=== PATIENT | male | born 1965 | race Caucasian/White ===

== ENCOUNTER 2016-07-07 18:42 | Emergency (ER) | payer MEDICAID ==
[~2016-07-07] VITALS: Ht 172.7 cm; Wt 68.1 kg
[~2016-07-07 18:42] MED LIST: ALPR1TAB2 PO; AMPH20TA2 PO
[2016-07-07 18:47] VITALS: BP 146/82
[2016-07-07] MEDS ORDERED: LIDOCAINE 1%, 10ML INFIL ONE (19:00)
[2016-07-07] MEDS ORDERED: DIPH,PERTUSS(ACELL),TET VAC/PF 0.5 ML IM-VACC ONE ×2 (19:00→19:19)
[2016-07-07] MEDS ORDERED: ACETAMINOPHEN 500 MG TABLET ONE (19:18)
[2016-07-07] MEDS ORDERED: LIDOCAINE 1%, 20ML ONE (19:26)
[2016-07-07] MEDS ORDERED: ACETAMINOPHEN 500 MG TABLET PO ONE (19:30)
[2016-07-07] MEDS ORDERED: HYDROmorphone 1 MG/ML, 1ML IM ONE (20:30)
[2016-07-07] MEDS ORDERED: HYDROmorphone 1 MG/ML, 1ML ONE (20:37)
== END 2016-07-07 20:51 | disposition home or self-care (01) ==
LOC: ED 20:33
DX: S09.90XA Unspecified injury of head, initial encounter (principal); X58.XXXA Exposure to other specified factors, initial encounter; Y93.89 Activity, other specified; Y92.89 Other specified places as the place of occurrence of the external cause; Y99.8 Other external cause status
CPT/HCPCS: 12002; 90471; 90715; 99283; J3490

== ENCOUNTER 2017-05-30 04:43 | Emergency (ER) | payer MEDICAID ==
[~2017-05-30] VITALS: Ht 172.7 cm; Wt 80.8 kg
[2017-05-30 04:45] VITALS: BP 156/92
[2017-05-30] MEDS ORDERED: IBUPROFEN 200 MG TABLET PO ONE (05:30)
[2017-05-30] MEDS ORDERED: IBUPROFEN 200 MG TABLET ONE (05:33)
[2017-05-30] MEDS ORDERED: ACETAMINOPHEN 325 MG TABLET ONE (05:36)
[2017-05-30] MEDS ORDERED: ACETAMINOPHEN 325 MG TABLET PO ONE (06:00)
== END 2017-05-30 07:24 | disposition home or self-care (01) ==
LOC: ED 07:19
DX: M79.672 Pain in left foot (principal); Z59.0 Homelessness
CPT/HCPCS: 99284

== ENCOUNTER 2018-01-27 16:01 | Emergency (ER) | payer MEDICAID ==
[~2018-01-27] VITALS: Ht 172.7 cm; Wt 82.0 kg
[2018-01-27] MEDS ORDERED: LIDOCAINE-MPF 1%, 5ML INFIL ONE (16:30)
[2018-01-27] MEDS ORDERED: DIPH,PERTUSS(ACELL),TET VAC/PF 0.5 ML IM-VACC ONE ×2 (17:24→17:30)
[2018-01-27] MEDS ORDERED: ACETAMINOPHEN 500 MG TABLET ONE (17:24)
[2018-01-27] MEDS ORDERED: ACETAMINOPHEN 500 MG TABLET PO ONE (17:30)
[2018-01-27 17:51] VITALS: BP 138/74
== END 2018-01-27 17:54 | disposition home or self-care (01) ==
LOC: ED 17:20
DX: S01.01XA Laceration without foreign body of scalp, initial encounter (principal); F32.9 Major depressive disorder, single episode, unspecified; Z21 Asymptomatic human immunodeficiency virus [HIV] infection status; R51 Headache; F17.200 Nicotine dependence, unspecified, uncomplicated; W19.XXXA Unspecified fall, initial encounter; Y93.89 Activity, other specified; Y92.410 Unspecified street and highway as the place of occurrence of the external cause; Y99.8 Other external cause status
CPT/HCPCS: 12001; 70450; 90471; 90715

== ENCOUNTER 2018-02-06 12:29 | Emergency (ER) | payer MEDICAID ==
[~2018-02-06] VITALS: Ht 172.7 cm; Wt 79.5 kg
[2018-02-06 12:32] VITALS: BP 150/85
[2018-02-06] MEDS ORDERED: ACETAMINOPHEN 325 MG TABLET ONE (12:57)
[2018-02-06] MEDS ORDERED: ACETAMINOPHEN 325 MG TABLET PO ONE (13:00)
== END 2018-02-06 13:07 | disposition home or self-care (01) ==
LOC: ED 12:37
DX: S01.01XD Laceration without foreign body of scalp, subsequent encounter (principal); F17.200 Nicotine dependence, unspecified, uncomplicated
CPT/HCPCS: 99282

== ENCOUNTER 2018-09-12 11:10 | Emergency (ER) | payer MEDICAID ==
[~2018-09-12] VITALS: Ht 172.7 cm; Wt 74.0 kg
--- NOTE | 2018-09-12 11:23 | NUR ---
BIB BY [facility] FOR RIGHT FOOT PAIN AFTER DROPPING TELEVISION ON FOOT. AMBULATORY W/ NO NOTICEABLE DEFICIT NO SWELLING NOTED CMS INTACT REPORTS PAIN AT 7/10 HR 116 TONGUE DRY, REPORTS HE WAS TOO BUSY TO DRINK ANYTHING THIS AM. REPORTS HE TOOK SCHEDULED 30MG OF ADDERRAL THIS AM
--- NOTE | 2018-09-12 11:28 | NUR ---
XRAY AT BEDSIDE
--- NOTE | 2018-09-12 11:40 | NUR ---
MAIA FROM [facility]ILL[facility]. PT CARE TO BE ASSUMED BY THIS BREAK RN.
--- NOTE | 2018-09-12 11:48 | NUR ---
PT SITTING ON SIDE OF GURNEY; ICE PACK ON FOOT; ADVISED PT TO ELEVATE FOOT; SUGGESTION ACCEPTED. PT A&OX4, RESP EVEN & UNLABORED, SPEECH QUICK AND CLEAR, PT IN GOOD SPIRITS. INFORMED PT THAT [facility] IS WAITING FOR RADIOLOGY REPORT.
[2018-09-12 12:47] VITALS: BP 138/62
== END 2018-09-12 12:50 | disposition home or self-care (01) ==
LOC: ED 12:04
DX: S97.121A Crushing injury of right lesser toe(s), initial encounter (principal); F17.200 Nicotine dependence, unspecified, uncomplicated; W23.1XXA Caught, crushed, jammed, or pinched between stationary objects, initial encounter; Y93.89 Activity, other specified; Y92.009 Unspecified place in unspecified non-institutional (private) residence as the place of occurrence of the external cause; Y99.8 Other external cause status
CPT/HCPCS: 99283

== ENCOUNTER 2018-09-17 23:04 | Emergency (ER) | payer MEDICAID ==
[~2018-09-17] VITALS: Ht 172.7 cm; Wt 73.5 kg
[2018-09-18 01:09] VITALS: BP 151/87
== END 2018-09-18 01:22 | disposition home or self-care (01) ==
LOC: ED 23:33
DX: S92.511A Displaced fracture of proximal phalanx of right lesser toe(s), initial encounter for closed fracture (principal); F32.9 Major depressive disorder, single episode, unspecified; F98.8 Other specified behavioral and emotional disorders with onset usually occurring in childhood and adolescence; F17.200 Nicotine dependence, unspecified, uncomplicated; W20.8XXA Other cause of strike by thrown, projected or falling object, initial encounter; Y93.89 Activity, other specified; Y92.009 Unspecified place in unspecified non-institutional (private) residence as the place of occurrence of the external cause; Y99.8 Other external cause status
CPT/HCPCS: 99283

== ENCOUNTER 2019-04-15 10:35 | Emergency (ER) | payer MEDICAID ==
[~2019-04-15] VITALS: Ht 172.7 cm; Wt 76.2 kg
[2019-04-15 10:53] VITALS: BP 150/89
--- NOTE | 2019-04-15 11:05 | NUR ---
arrived to with PD escort, gait steady, A&ox3, speech clear but rapid, strong smell of smoke coming from pt, denies HI/SI, denies visual or auditory hallucinations, skin intact
--- NOTE | 2019-04-15 11:11 | NUR ---
pt refusing blood work, provider @ bedside with pt
--- NOTE | 2019-04-15 13:27 | NUR ---
Patient given discharge instructions and they have confirmed that they understand the instructions. Patient ambulatory with steady gait.
== END 2019-04-15 13:28 | disposition home or self-care (01) ==
LOC: ED 12:23
DX: R46.81 Obsessive-compulsive behavior (principal)
CPT/HCPCS: 99283

== ENCOUNTER 2019-09-10 04:09 | Emergency (ER) | payer MEDICAID ==
[~2019-09-10] VITALS: Ht 172.7 cm; Wt 68.0 kg
[2019-09-10 04:16] VITALS: BP 161/100
== END 2019-09-10 05:59 | disposition home or self-care (01) ==
LOC: ED 04:42
DX: G89.11 Acute pain due to trauma (principal); M79.641 Pain in right hand; M79.642 Pain in left hand; M79.5 Residual foreign body in soft tissue
CPT/HCPCS: 99282

== ENCOUNTER 2020-07-19 20:36 | Emergency (ER) | payer MEDICAID ==
[~2020-07-19] VITALS: Ht 172.7 cm; Wt 86.1 kg
--- NOTE | 2020-07-19 23:36 | NUR ---
IRON WORKER APPRENTICE: PT. TO ROOM FROM LOBBY AT THIS TIME.
--- NOTE | 2020-07-19 23:38 | NUR ---
ASSESSMENT MADE. CHART UP FOR MD TO SEE.
[2020-07-20 00:26] LABS: BASOPHILS % (AUTO) 1 % (0-1); EOSINOPHILS % (AUTO) 3 % (1-7); LYMPHOCYTES % (AUTO) 25 % (22-44); MEAN CORPUSCULAR HEMOGLOBIN 32.2 pg (27.5-34.5); MEAN CORPUSCULAR HGB CONC 33.9 g/dL (33.2-36.2); MEAN PLATELET VOLUME 8.5 fL (7.4-10.4); MONOCYTES % (AUTO) 10 % (2-9); NEUTROPHILS % (AUTO) 62 % (42-75); PLATELET COUNT 241 x10^3/uL (130-400); RED BLOOD COUNT 4.02 x10^6/uL (4.38-5.82); RED CELL DISTRIBUTION WIDTH 15.6 % (9.4-14.8)
[2020-07-20 00:28] LABS: MD NO
[2020-07-20] MEDS ORDERED: HYDROcodone/APAP 5/325 TABLET PO ONE (00:30)
--- NOTE | 2020-07-20 00:35 | NUR ---
IV PLACED BY CARDING MACHINE FEEDER STUDENT. BLOOD DRAWN.
[2020-07-20 00:38] LABS: ALBUMIN 4.1 g/dL (3.4-5.0); ANION GAP 6 mmol/L (5-15); CALCIUM 9.1 mg/dL (8.5-10.1); CHLORIDE 107 mmol/L (98-107)
[2020-07-20 00:41] LABS: ALANINE AMINOTRANSFERASE 35 U/L (12-78); ALKALINE PHOSPHATASE 70 U/L (45-117); BILIRUBIN,TOTAL 0.3 mg/dL (0.2-1.0); CREATININE 1.01 mg/dL (0.7-1.3); TOTAL PROTEIN 7.7 g/dL (6.4-8.2)
[2020-07-20 00:43] LABS: MICROSCOPIC NOT IND
[2020-07-20] MEDS ORDERED: HYDROcodone/APAP 5/325 TABLET ONE (00:50)
--- NOTE | 2020-07-20 00:58 | NUR ---
ROHIT RN: PT MEDICATED FOR 8/10 ABD PAIN. VS STABLE. NO ACUTE DISTRESS NOTED. CALL LIGHT IN PLACE WILL CONTINUE TO MONITOR.
[2020-07-20] MEDS ORDERED: OMNIPAQUE 350 MG/ML, 100ML BOTTLE ONE (01:50)
[2020-07-20 03:38] VITALS: BP 136/94
--- NOTE | 2020-07-20 03:38 | NUR ---
RE-EVALUATION DONE. PATIENT DISCHARGED WITH INSTRUCTION. VERBALIZED UNDERSTANDING.
== END 2020-07-20 03:40 | disposition home or self-care (01) ==
LOC: ED 07-20 01:40
DX: K76.89 Other specified diseases of liver (principal); K44.9 Diaphragmatic hernia without obstruction or gangrene; K42.9 Umbilical hernia without obstruction or gangrene; F17.210 Nicotine dependence, cigarettes, uncomplicated; Z21 Asymptomatic human immunodeficiency virus [HIV] infection status
CPT/HCPCS: 36415; 74177; 80053; 81003; 83690; 85025; 99285; 99406; Q9967